=== PATIENT | male | born 1985 | race Asian ===

== ENCOUNTER 2022-08-24 10:19 | Day surgery (SDC) | payer MEDICARE, MEDICAID ==
[~2022-08-24] VITALS: Ht 167.6 cm; Wt 78.2 kg
[2022-08-24] MEDS ORDERED: fentaNYL/PF 50MCG/1 ML 2ML syringe ONE (11:09)
[2022-08-24] MEDS ORDERED: MIDAZolam 1 MG/ML 5ML VIAL ONE (11:09)
[2022-08-24] MEDS ORDERED: LIDOcaine Viscous 15ml cup ONE (11:09)
[2022-08-24] MEDS ORDERED: FLO44IN (11:10)
[2022-08-24] MEDS ORDERED: TRIA454O (11:10)
[2022-08-24] MEDS ORDERED: DEXL60CA3 PO (11:10)
[2022-08-24] MEDS ORDERED: BUPR-317 PO (11:10)
[2022-08-24] MEDS ORDERED: QUET50TA24 (11:10)
[2022-08-24] MEDS ORDERED: VENL75CA61 PO (11:10)
[2022-08-24] MEDS ORDERED: SILD50TA53 PO (11:10)
[2022-08-24] MEDS ORDERED: ALBUTEROL (11:10)
[2022-08-24] MEDS ORDERED: TEST200V33 IM (11:10)
[2022-08-24] MEDS ORDERED: VALS160T30 PO (11:10)
[2022-08-24] MEDS ORDERED: MONT-40 PO (11:10)
[2022-08-24] MEDS ORDERED: CHLO25TA10 PO (11:10)
[2022-08-24] MEDS ORDERED: diphenhydrAMINE 50 mg/ml inj ONE (11:14)
[2022-08-24 12:05] VITALS: BP 145/78
[2022-08-24 12:15] VITALS: BP 138/70
[2022-08-24 12:25] VITALS: BP 121/87
[2022-08-24 12:48] VITALS: BP 142/108
== END 2022-08-24 12:40 | disposition home or self-care (01) ==
LOC: GI LAB 10:19
PROVIDERS: ATTEND Internal Medicine Gastroenterology
DX: K21.9 Gastro-esophageal reflux disease without esophagitis (principal); K29.70 Gastritis, unspecified, without bleeding; K31.7 Polyp of stomach and duodenum; I10 Essential (primary) hypertension; Z87.891 Personal history of nicotine dependence; Z91.018 Allergy to other foods; Z79.899 Other long term (current) drug therapy
CPT/HCPCS: 43239; 88305; 88342; G0500; J1200; J2250; J3010; J7030; Z7512; 99152; 99153; A4620